=== PATIENT | female | born 1985 | race African-American/Black ===

== ENCOUNTER 2022-10-17 04:35 | Emergency (ER) | payer OTHER ==
[2022-10-17] MEDS ORDERED: Ketorolac Tromethamine 30 MG/ML VIAL ONE (06:15)
== END 2022-10-17 06:21 | disposition home or self-care (01) ==
LOC: CSHERS 04:35
DX: K02.9 Dental caries, unspecified (principal); F17.210 Nicotine dependence, cigarettes, uncomplicated
CPT/HCPCS: 96372; 99282; J1885